=== PATIENT | female | born 1965 | race Caucasian/White ===

== ENCOUNTER 2018-07-04 09:06 | Day surgery (SDC) | payer SELFPAY ==
[2018-07-02 15:35] VITALS: BMI 25.6
[2018-07-04] MEDS ORDERED: HEPARIN NA (PORCINE) 5,000 UNITS/ML 1ML VIAL ONE (09:59)
[2018-07-04] MEDS ORDERED: ceFAZolin SODIUM 1 GM VIAL ONE (10:00)
[2018-07-04] MEDS ORDERED: LIDOCAINE HCL 1%, 10 MG/ML (20ML VIAL) ONE (10:10)
[2018-07-04] MEDS ORDERED: EPINEPHrine/PF 1 MG/1 ML (1:1,000) AMPULE ONE ×4 (10:10→14:44)
[2018-07-04] MEDS ORDERED: BUPIVACAINE HCL/PF 0.25% (2.5MG/ML) 10 ML VIAL ONE ×2 (10:11→12:15)
[2018-07-04] MEDS ORDERED: HEPARIN NA (PORCINE) 5,000 UNITS/ML 1ML VIAL SQ ONE (10:24)
[2018-07-04] MEDS ORDERED: MIDAZOLAM HCL 2 MG/2 ML SINGLE DOSE VIAL ONE (10:53)
[2018-07-04] MEDS ORDERED: DEXAMETHASONE SOD PHOSPHATE 4 MG/1 ML VIAL ONE ×2 (11:37→16:08)
[2018-07-04] MEDS ORDERED: PROPOFOL 20 ML ONE (11:39)
[2018-07-04] MEDS ORDERED: LIDOCAINE HCL/PF 2% SDV 5ML VIAL ONE (11:39)
[2018-07-04] MEDS ORDERED: ROCURONIUM BROMIDE 50 MG/5 ML VIAL ONE ×2 (11:40→12:40)
[2018-07-04] MEDS ORDERED: ceFAZolin SODIUM 1 GM VIAL IVPB ONE (11:50)
[2018-07-04] MEDS ORDERED: ePHEDrine SULFATE 50 MG/1 ML AMPULE ONE ×2 (12:30→16:30)
[2018-07-04] MEDS ORDERED: PROMETHAZINE HCL 25 MG/1 ML VIAL IVPB PRN (13:31)
[2018-07-04] MEDS ORDERED: BUPIVACAINE LIPOSOME/PF (EXPAREL) 266 MG/20 ML VIAL NR ONE (14:00)
[2018-07-04] MEDS ORDERED: BUPIVACAINE HCL/PF 0.25% (2.5MG/ML) 10 ML VIAL IJ ONE ×2 (14:00)
[2018-07-04] MEDS ORDERED: ONDANSETRON 4 MG/2 ML VIAL IVPB PRN (17:19)
[2018-07-04] MEDS ORDERED: MORPHINE SULFATE 2 MG/ML VIAL IVPUSH PRN (17:19)
--- NOTE | 2018-07-04 17:25 | OP ---
Operative Note - Note: Operative Date: 07/04/18 Pre-Operative Diagnosis: lipodystrophy Operation: abdominoplasty with liposuctionto flanks and thighs Post-Operative Diagnosis: Same as Pre-op Surgeon: Hayes Hidalgo Anesthesia: General Drains & Tubes with Location: zaida x 2 abdomen
--- NOTE | 2018-07-04 18:08 | OP ---
DATE OF OPERATION: 07/04/2018 TITLE OF PROCEDURE: Abdominoplasty with bilateral flank and lateral thigh liposuction. ATTENDING SURGEON: Hayes Sánchez MD COMMUNICATIONS INSTRUCTOR: None. ANESTHESIA: General endotracheal anesthesia. The patient additionally received 20 mL of Exparel mixed with 30 mL of 0.25% bupivacaine plain that was given prior to closure. DESCRIPTION OF PROCEDURE: The patient is marked in the standing position in the holding area, awake and aware of all incisions and resulting scars. She was also counseled on all risks, benefits and alternatives to the procedure as well as its limitations, understands and agrees to proceed. She is awake, aware of the position of all of the incisions. The patient was then brought to the operating room and placed in the supine position. Position was carefully checked by surgical and anesthesia teams. Sequential compression stockings and BENNY hose are applied. The patient received 5000 units of subcutaneous heparin preoperatively. After anesthesia is given, a Patel catheter is placed, which is removed at the end of the procedure. All pressure points are carefully padded. She is prepped and draped in the standard surgical fashion. A time-out was called. Patient, procedure, side and sites were verified. At this point an incision was made along the infrapannicular crease at the lower end of the marked resection pattern. Dissection was carried down to the level of the abdominal wall fascia, and dissection was then carried along the abdominal wall fascia cephalad to the level of the umbilicus. The umbilicus was then circumcised, developed on a fibrofatty stalk. It is preserved on its deep vascular attachments. Dissection was then continued cephalad to the xiphoid process and midline costal margins bilaterally. At this point the midline plication is then performed. First a series of interrupted buried [id number] No. 1 Prolene sutures, followed by a running locking No. 1 Prolene suture in the midline. A smooth, even-tension contour to the abdominal wall was achieved. The abdominoplasty flap is then thinned of the sub-Lindsay's fat. Hemostasis was achieved. Copious irrigation was performed with saline. The patient was then brought to a 30-degree flexed position, where the skin and residual abdominoplasty flap are then marked for resection. Resection patterns are remade, and the excess skin and fat are excised. The skin is tailor-tacked to the umbilicus. Site is marked. A Star Trek pattern with a 6 o'clock notch is used. The umbilicus is converted to this pattern. A core of fat is removed deep to the translocation incision. The umbilicus is then translocated using a series of interrupted buried deep dermal 3-0 Monocryl sutures, followed by a series of interrupted 4-0 nylon suture. Size 10 flap FRANTZ Ruslan drains are brought out through the incision. The left is along the border of the incision and the right is in the superior aspect of the incision. At this point the prepared areas for liposuction are infiltrated with wetting solution. Wetting solution is 1 L of normal saline with 1 ampule of epinephrine. There was no lidocaine in the wetting solution. The total infiltrated is 2100 mL, spread between the bilateral flanks and bilateral lateral thighs. Thirty is awaited for full hemostatic effect of the wetting solution. During this time the Exparel was injected as previously described. The abdominal closure is performed, first with a series of interrupted Lindsay's layer 2-0 Vicryl suture, followed by a series of interrupted buried deep dermal 3-0 Monocryl suture, followed by a running middermal Monocryl V-Loc 3-0 suture, followed by several 5-0 nylon sutures along the incision. Through residual openings in the abdominoplasty incision as well as several additional stab wound incisions, liposuction is then performed using the safe liposuction technique, using a 4-mm basket-tip cannula for pre- and post-tunneling. The liposuction is then performed with a combination of 3-mm and 4-mm. Standard traditional liposuction is used. The lipoaspirates are 400 mL from the left flank and 400 mL from the left lateral thigh, 400 mL from the right flank and 350 mL from the right lateral thigh. The total lipoaspirate is 1550 mL. The incisions were all closed with a series of interrupted 4-0 nylon suture. A compressive liposuction thigh garment is applied. A binder is applied. Dressings were applied with Steri-Strips, 4 x 4 gauze and ABD gauze. The patient was awoken from anesthesia without complication. The Patel catheter is removed. She was transferred to Recovery without complication in a flexed position. HAYES SÁNCHEZ M.D. [id number]
[2018-07-04] MEDS: LACTATED RINGERS SOLUTION 1,000 ML IV SCH (19:25)
[2018-07-04] MEDS: CEFAZOLIN 1 GM/D5W 1 GM/50 ML BAG IVPB SCH (21:10)
[2018-07-05] MEDS: oxyCODONE HCL 5 MG TABLET PO PRN ×2 (01:35→09:00)
[2018-07-05] MEDS: CEFAZOLIN 1 GM/D5W 1 GM/50 ML BAG IVPB SCH ×2 (02:44→09:02)
[2018-07-05] MEDS: LACTATED RINGERS SOLUTION 1,000 ML IV SCH (06:31)
--- NOTE | 2018-07-05 08:21 | PN ---
Progress Note (short form) - Note Progress Note: POD 1 VSS AF Pain well controlled. All tissues viable with no infection or collection. FRANTZ' s thin and functioning. OOB, ambulating, urinatng, receiving SCD and sq hep OK for discharge with instructions today.
--- NOTE | 2018-07-05 08:50 | PN ---
Progress Note (short form) - Note Progress Note: S/P Abdominoplastyand and liposuction of bilateral flanks and thigh under GA uneventful.Patient stable.No any anesthesia related problem.Patient Dc from the anesthesia care.
[2018-07-05] MEDS: HEPARIN NA (PORCINE) 5,000 UNITS/ML 1ML VIAL SQ SCH ×2 (09:02→09:07)
[2018-07-05 10:38] VITALS: TEMP 98.9
[2018-07-05 10:40] VITALS: BP 104/68; PULSE 75
== END 2018-07-05 12:00 | disposition home or self-care (01) ==
LOC: JASUSAT 09:06 → J6S 19:46 → JASUSAT 07-05 12:00
PROVIDERS: ATTEND Plastic Surgery
PROC: 0J0M3ZZ Alteration of Left Upper Leg Subcutaneous Tissue and Fascia, Percutaneous Approach (ICD-10-PCS; 2018-07-04)
PROC: 0J0L3ZZ Alteration of Right Upper Leg Subcutaneous Tissue and Fascia, Percutaneous Approach (ICD-10-PCS; 2018-07-04)
PROC: 0J080ZZ Alteration of Abdomen Subcutaneous Tissue and Fascia, Open Approach (ICD-10-PCS; principal; 2018-07-04 09:00)
DX: E65 Localized adiposity (principal)
CPT/HCPCS: 94760; J1644